=== PATIENT | female | born 1995 | race Caucasian/White ===

== ENCOUNTER 2018-12-21 14:33 | Emergency (ER) | payer OTHER ==
--- NOTE | 2018-12-21 15:00 | RADIOLOGY REPORT (SQ) ---
EXAM DESCRIPTION: ANKLE RIGHT COMPLETE COMPLETED DATE/TIME: 12/21/2018 2:49 pm REASON FOR STUDY: fell down two steps twisted right ankle COMPARISON: None. NUMBER OF VIEWS: Three views. TECHNIQUE: AP, lateral, and oblique radiographic images acquired of the right ankle. LIMITATIONS: None. FINDINGS: MINERALIZATION: Normal. BONES: No acute fracture or dislocation. No worrisome bone lesions. JOINTS: No effusions. SOFT TISSUES: Lateral soft tissue swelling. OTHER: No other significant finding. IMPRESSION: Soft tissue swelling. No acute fracture. TECHNICAL DOCUMENTATION: JOB ID: [id number] [employer]- All Rights Reserved Reading location - IP/workstation name: [email or web address]
[2018-12-21] MEDS ORDERED: ACETAMINOPHEN 325 MG TABLET PO ONE (15:34)
[2018-12-21] MEDS ORDERED: IBUPROFEN 600 MG TABLET PO ONE (15:34)
--- NOTE | 2018-12-21 15:34 | ER Document Report ---
HPI - HPI Time Seen by Provider: 12/21/18 15:22 Context: Patient is a 23-year-old female who presents the emergency department with a chief complaint of right ankle pain. She states that last night she was going down the stairs and had slipped down the last 2 stairs. She notes some swelling and bruising to her right lateral ankle. She has been using her boyfriend's crutches to walk around. Has not taken any ibuprofen or tylenol for her pain. States that it is hard to walk on. Denies any past medical history. Patient does not take any medications. Denies hitting her head, shortness of breath, chest pain, back pain, abdominal pain, or any other symptoms. - CONSTITUTIONAL Constitutional: DENIES: Fever - EENT EENT: DENIES: Sore Throat - NEURO Neurology: DENIES: Headache - CARDIOVASCULAR Cardiovascular: DENIES: Chest pain - RESPIRATORY Respiratory: DENIES: Trouble Breathing - REPRODUCTIVE Reproductive: DENIES: : - MUSCULOSKELETAL Musculoskeletal: REPORTS: Extremity pain - right lateral ankle, Swelling - right lateral ankle. DENIES: Back Pain, Neck Pain - DERM Skin Color: Normal Skin Problems: None Past Medical History - Social History Smoking Status: Never Smoker Family History: Reviewed & Not Pertinent Renal/ Medical History: Reports: Hx Kidney Stones Past Surgical History: Reports: Hx Orthopedic Surgery - Right knee anterior cruciate ligament repair Vertical Provider Document - CONSTITUTIONAL Agree With Documented VS: Yes Exam Limitations: No Limitations General Appearance: No Apparent Distress - INFECTION CONTROL TRAVEL OUTSIDE OF THE [place].S. IN LAST 30 DAYS: No - HEENT HEENT: Atraumatic, Normocephalic, PERRLA - NECK Neck: Normal Inspection - RESPIRATORY Respiratory: No Respiratory Distress - CARDIOVASCULAR Cardiovascular: Regular Rate, Regular Rhythm Pulses: Normal: Posterior tibial, Dorsalis pedis - MUSCULOSKELETAL/EXTREMETIES Musculoskeletal/Extremeties: Tender, Edema. negative: FROM - unable to fully move right ankle due to pain, Eccymosis - right lateral ankle - NEURO Level of Consciousness: Awake, Alert, Appropriate Motor/Sensory: No Motor Deficit, No Sensory Deficit, No Pronator Drift - DERM Integumentary: Warm, Dry Course - Re-evaluation Re-evalutation: 12/21/18 No evidence of a septic joint, gout flare, dislocation, or fracture on exam and imaging. Vitals wnl. No vascular compromise. At this time, I do not see an indication for labs or further imaging. Will continue ibuprofen and tylenol for pain relief. Patient is using crutches from home. Will not provide crutches, but will provide an ankle stirrup and kennedy wrap. Will discharge with conservative measures, return precautions, and follow-up recommendations. - Vital Signs Vital signs: Temp Pulse Resp BP Pulse Ox 98.5 F 106 H 16 149/90 H 100 12/21/18 14:53 12/21/18 14:53 12/21/18 14:53 12/21/18 14:53 12/21/18 14:53 Procedures - Immobilization Right Ankle Pre-Proc Neuro Vasc Exam: Normal Immobilizer type: Kennedy wrap, Ankle stirrup Performed by: Provider Post-Proc Neuro Vasc Exam: Normal, Unchanged from pre-exam Alignment checked and good: Yes Discharge - Discharge Clinical Impression: Ankle sprain Qualifiers: Encounter type: initial encounter Involved ligament of ankle: unspecified ligament Laterality: right Qualified Code(s): S93.401A - Sprain of unspecified ligament of right ankle, initial encounter Condition: Stable Disposition: HOME, SELF-CARE Instructions: Kennedy Wrap ([facility]), Use of Crutches ([facility]), Ice & Elevation ([facility]), Ice Packs ([facility]), Soft Ankle Splint ([facility]), Sprained Ankle ([facility]) Additional Instructions: Your x-ray does not show any acute fracture today. You likely have a ligamentous sprain. You should continue to take ibuprofen 600 mg and Tylenol 1000 mg every 6 hours. Continue to apply ice to the area is much your able. Please follow-up with your primary care physician if you do not have improving your symptoms in the next 1-2 weeks. Please return immediately if you develop weakness, numbness, spreading redness from the area, or any other symptoms that are concerning to you.
[2018-12-21 15:41] VITALS: BP 148/98
== END 2018-12-21 16:05 | disposition home or self-care (01) ==
LOC: ER 14:33
DX: S93.401A Sprain of unspecified ligament of right ankle, initial encounter (principal); M25.571 Pain in right ankle and joints of right foot; W10.9XXA Fall (on) (from) unspecified stairs and steps, initial encounter
CPT/HCPCS: 99283; 73610; L4350

== ENCOUNTER → 2020-02-18 | Outpatient (CLI) | payer OTHER ==
[2020-02-18 11:24] VITALS: BP 165/103
--- NOTE | 2020-02-18 11:24 | ER RDC ASSESSMENT REPORT ---
Intake - In the Last 14 days Have you traveled outside [place]?: No Have you been in close contact with someone CONFIRMED: No Worked in Healthcare?: No - Symptoms Subjective Fever([place] feverish): Yes Chills: Yes Muscule Aches: No Runny Nose: No Sore Throat: Yes Cough (New or worsening chronic cough): Yes Shortness of breath: No Nausea or Vomiting: Yes Headache: Yes Abdominal Pain: No Diarrhea(3 or more loose stools in last 24 hours): No - Do you have any of the following Chronic lung disease: Asthma or emphysema or COPD: No Cystic Fibrosis: No Diabetes: No High Blood Pressure: Yes High Blood Pressure Comment: not well controlled Cardiovascular Disease: No Chronic Kidney Disease: No Chronic Liver Disease: No Chronic blood disorder like Sickle Cell Disease: No Weak immune system due to disease or medication: No Neurologic condition that limits movement: No Developmental delay - Moderate to Severe: No Recent (within past 2 weeks) or current : No Morbid Obesity (>100 pounds over ideal weight): No - Objective Vital Signs: 5'3", 140 lb Temperature: 98.0 F Pulse Rate: 94 Respiratory Rate: 14 Blood Pressure: 165/103 O2 Sat by Pulse Oximetry: 96 Objective: Given above, testing performed: strep, flu, covid Disposition: Home; Selfcare General - General Chief Complaint: Flu Symptoms Time Seen by Provider: 02/18/20 10:15 Mode of Arrival: Ambulatory - [facility] Notes: 25-year-old female presents to [facility] clinic for COVID-19 testing. Prior medical history of hypertension which she admits is poorly controlled. Patient reports onset of symptoms 02/15/2020. She is reporting mild fever, chills, sore throat, cough, nausea, and headache. Patient reports her symptoms have actually started improving within the past 24 hours. She also did take some ibuprofen with relief. No exacerbating factors. - Related Data Allergies/Adverse Reactions: No Known Allergies Allergy (Verified 12/21/18 14:37) Past Medical History - General Information source: Patient - Social History Smoking Status: Never Smoker Family History: Reviewed & Not Pertinent - Past Medical History Cardiac Medical History: Reports: Hx Hypertension Pulmonary Medical History: Reports: None EENT Medical History: Reports: None Neurological Medical History: Reports: None Endocrine Medical History: Reports: None Renal/ Medical History: Reports: Hx Kidney Stones. Denies: Hx Peritoneal Dialysis Malignancy Medical History: Reports: None GI Medical History: Reports: None Musculoskeletal Medical History: Reports None Skin Medical History: Reports None Psychiatric Medical History: Reports: None Traumatic Medical History: Reports: None Infectious Medical History: Reports: None Past Surgical History: Reports: Hx Orthopedic Surgery - Right knee anterior cruciate ligament repair Physical Exam - General General appearance: Appears well In distress: None Notes: PHYSICAL EXAMINATION: GENERAL: Well-appearing and in no acute distress. HEAD: Atraumatic, normocephalic. EYES: sclera anicteric, conjunctiva are normal. ENT: nares patent. Moist mucous membranes. NECK: Normal range of motion, supple without lymphadenopathy LUNGS: CTAB and equal. No wheezes rales or rhonchi. HEART: Regular rate and rhythm without murmurs ABDOMEN: Soft, nontender, normal bowel sounds, no guarding. EXTREMITIES: Normal range of motion, no pitting edema. No cyanosis. NEUROLOGICAL: Cranial nerves grossly intact. Normal speech. PSYCH: Normal mood, normal affect. SKIN: Warm, Dry, normal turgor, no rashes or lesions noted Patient Education/Counseling Counseling/Education: Patient presents with upper respiratory symptoms worrisome for possible Covid 19. Patient does not have emergency worrying symptoms such as difficulty breathing, shortness of breath, chest pain, pressure, confusion or cyanosis and states her symptoms have actually started to improve over the past 24 hours. Her BP is markedly elevated which may be contributing to her headache. She states she ran out of her HTN meds and has not sought refills. Advised urgency of following up with PCP KATHY for mgmt of the blood pressure which patient states she will do. Patient appears suitable for discharge as patient is nontoxic in appearance. Good return precautions have been discussed with patient, patient verbalized understanding and is agreeable with discharge plan of care at this time. Guidance for worsening S/SX: As a person under investigation for Covid 19, the [place] department of Health and Human Services, division of public health advises you to adhere to the following guidance until your test results are reported to you. If your test result is positive, you will receive additional information from your provider and your local health department at that time. Remain at home until you are cleared by the health provider or public health authorities. Keep a log of visitors to your home, notify any visitors to your home of your i solation status. If you plan to move to a new address or leave the county, notify the local health department in your County. Call your doctor or seek care if you have an urgent medical need. Before seeking medical care, call ahead to get instructions from the provider before arriving at the medical office clinic or hospital. Notify them that you are being tested for the virus that causes Covid 19 so that arrangements can be made, as necessary, to prevent transmission to others in the healthcare setting. Next, notify the local health department in your county. If a medical emergency arises and you need to call 911, inform the first responders that you are being tested for the virus that causes Covid 19. Next, notify the local health department in your county. RDC Discharge - Discharge Condition: Stable Disposition: Home; Selfcare
[2020-02-18 12:11] LABS: A TYPE INFLUENZA AG NEGATIVE (NEGATIVE); B INFLUENZA AG NEGATIVE (NEGATIVE)
== END ==
LOC: RDC 09:37
PROVIDERS: ATTEND Registered Nurse
DX: Z20.828 Contact with and (suspected) exposure to other viral communicable diseases (principal)
CPT/HCPCS: 36415; 87070; 87880; 87635; 87804; C9803

== ENCOUNTER 2020-03-18 14:27 | Emergency (ER) | payer OTHER ==
--- NOTE | 2020-03-18 14:48 | ER Document Report ---
ED Medical Screen (RME) - General Chief Complaint: Blood Pressure Problem Stated Complaint: BLOOD PRESSURE Time Seen by Provider: 03/18/20 14:45 Primary Care Provider: EARLE TELLES NP [Primary Care Provider] - Follow up as needed Mode of Arrival: Ambulatory Information source: Patient Notes: 25-year-old female presented to ED for elevated pulse elevated blood pressure shaky cough congestion sore throat nausea and vomiting she does not have a fever. She went over to the [facility] to get tested for COVID and they sent her to the emergency room for elevated pulse and blood pressure. I have spoken with the charge nurse concerning her pulse of 130 apically 138 on the machine with elevated blood pressure trouble over trouble. She states she would see to it that her wound was cleaned and get her back right away. I have greeted and performed a rapid initial assessment of this patient. A comprehensive ED assessment and evaluation of the patient, analysis of test results and completion of medical decision making process will be conducted by an additional ED providers. TRAVEL OUTSIDE OF THE [place].S[place] IN LAST 30 DAYS: No - Related Data Allergies/Adverse Reactions: No Known Allergies Allergy (Verified 12/21/18 14:37) Past Medical History - Past Medical History Cardiac Medical History: Reports: Hx Hypertension Renal/ Medical History: Reports: Hx Kidney Stones. Denies: Hx Peritoneal Dialysis Past Surgical History: Reports: Hx Orthopedic Surgery - Right knee anterior cruciate ligament repair Physical Exam - Vital signs Vitals: Temp Pulse Resp BP Pulse Ox 98.4 F 143 H 20 155/108 H 99 03/18/20 14:35 03/18/20 14:35 03/18/20 14:35 03/18/20 14:35 03/18/20 14:35 Course - Vital Signs Vital signs: Temp Pulse Resp BP Pulse Ox 98.4 F 143 H 20 155/108 H 99 03/18/20 14:35 03/18/20 14:35 03/18/20 14:35 03/18/20 14:35 03/18/20 14:35 Doctor's Discharge - Discharge Referrals: EARLE TELLES NP [Primary Care Provider] - Follow up as needed
--- NOTE | 2020-03-18 15:43 | ER Document Report ---
ED General - General Chief Complaint: High Blood Pressure Stated Complaint: BLOOD PRESSURE Time Seen by Provider: 03/18/20 14:45 Primary Care Provider: EARLE TELLES NP [Primary Care Provider] - Follow up as needed Mode of Arrival: Ambulatory TRAVEL OUTSIDE OF THE [place] IN LAST 30 DAYS: No - HPI Notes: Patient is a 25-year-old female who presents to the emergency department for evaluation of chills, cough, sore throat, vomiting, feeling poorly. She states her symptoms started Sunday. She started taking symptomatic over the counter medications yesterday. Today she states she is started in the chief medical director hours with multiple episodes of vomiting, nonbloody, nonbilious. She has body aches and a mild headache. She is shaking chills. She has a cough. She has some mild shortness of breath. Patient notes she has a history of high blood pr essure. She actually has an appointment to follow-up with cardiology regarding this on Sunday. - Related Data Allergies/Adverse Reactions: No Known Allergies Allergy (Verified 12/21/18 14:37) Home Medications: NuvaRing Past Medical History - General Information source: Patient - Social History Smoking Status: Never Smoker Family History: Reviewed & Not Pertinent, Hypertension - Past Medical History Cardiac Medical History: Reports: Hx Hypertension Renal/ Medical History: Reports: Hx Kidney Stones. Denies: Hx Peritoneal Dial ysis Past Surgical History: Reports: Hx Orthopedic Surgery - Right knee anterior cruciate ligament repair Review of Systems - Review of Systems Constitutional: See HPI EENT: See HPI Respiratory: See HPI Gastrointestinal: See HPI Musculoskeletal: See HPI -: Yes All other systems reviewed and negative Physical Exam - Vital signs Vitals: Temp Pulse Resp BP Pulse Ox 98.4 F 143 H 20 155/108 H 99 03/18/20 14:35 03/18/20 14:35 03/18/20 14:35 03/18/20 14:35 03/18/20 14:35 - Notes Notes: Vital signs reviewed, please refer to chart. Head is normocephalic, atraumatic. Pupils equal round, reactive to light. Oral mucosa is moist. Pharynx is erythematous without exudate noted. Neck is supple without meningismus. Heart is tachycardic with normal S1, S2. Lungs are clear to auscultation bilaterally. Abdomen is soft, nontender, normoactive bowel sounds throughout. Extremities without cyanosis, clubbing. Posterior calves are nontender. Peripheral pulses are equal. Skin is warm and dry. Patient is awake, alert, neurological exam is nonfocal. Course - Re-evaluation Re-evalutation: 03/18/20 15:42 Patient presents to the emergency department for evaluation. She was tachycardi c and hypertensive on arrival. She admits to feeling some anxiety about testing. She is originally seen through triage. Septic work-up and evaluation ensued. I am also concerned about the possibility of pulmonary embolus in this young patient with tachycardia and right axis deviation on her EKG. This still could be secondary to her age, but I do not have any old studies available for comparison. She is consented for PE study. Laboratory investigations are pending. She is given IV fluids. We will continue to monitor. 03/18/20 18:32 Patient's work-up here is essentially unremarkable. She has negative influenza, negative strep. Her laboratory investigations revealed a very mild leukocytosis and some ketones in the urine, but no other significant abnormalities. I will ahead and perform COVID testing. The patient is told she needs to self isolate, as do all other members of her household. Supportive care at home. She is to return to the ED with worsening or new concerning symptoms of any sort. - Vital Signs Vital signs: Temp Pulse Resp BP Pulse Ox 98.4 F 143 H 20 153/91 H 100 03/18/20 14:35 03/18/20 14:35 03/18/20 18:04 03/18/20 18:04 03/18/20 18:04 - Laboratory Result Diagrams: 03/18/20 15:52 03/18/20 15:52 Laboratory results interpreted by me: 03/18/20 03/18/20 03/18/20 15:52 15:52 16:26 WBC 11.5 H Lymph % (Auto) 11.9 L Absolute Neuts (auto) 9.3 H Seg Neutrophils % 81.0 H BUN 6 L Calcium 10.3 H Total Protein 8.7 H Urine Ketones 20 H Urine Blood SMALL H Urine Urobilinogen 4.0 H Ur Leukocyte Esterase TRACE H - Diagnostic Test Radiology reviewed: Reports reviewed Radiology results interpreted by me: 03/18/20 18:33 Chest X-Ray 03/18/20 14:49 IMPRESSION: NO ACUTE RADIOGRAPHIC FINDING IN THE CHEST. Chest/Abdomen CTA 03/18/20 15:38 IMPRESSION: NORMAL CTA OF THE CHEST. NO PULMONARY EMBOLI. - EKG Interpretation by Me Additional EKG results interpreted by me: 03/18/20 15:42 Sinus tachycardia with rate of 134 bpm. Right axis deviation. No acute ST changes concerning for ischemia or infarction. No old studies available for comparison. Discharge - Discharge Clinical Impression: Person under investigation for COVID-19 Hypertension Qualifiers: Hypertension type: unspecified Qualified Code(s): I10 - Essential (primary) hypertension Condition: Stable Disposition: HOME, SELF-CARE Instructions: High Blood Pressure ([facility]), COVID-19 Guidance for Persons Under Investigation Additional Instructions: Stay hydrated with small, frequent sips of fluids. Isolate at home, as discussed, until you are contacted with your results. You can use ove [id number] medications as needed for your symptoms. Return to the emergency department for worsening or new concerning symptoms of any sort. Otherwise call your primary care provider for follow-up. Referrals: EARLE TELLES NP [Primary Care Provider] - Follow up as needed
--- NOTE | 2020-03-18 15:55 | RADIOLOGY REPORT (SQ) ---
EXAM DESCRIPTION: CHEST SINGLE VIEW IMAGES COMPLETED DATE/TIME: 03/18/2020 3:45 pm REASON FOR STUDY: cough congestion tachycardic COMPARISON: None. EXAM PARAMETERS: NUMBER OF VIEWS: One view. TECHNIQUE: Single frontal radiographic view of the chest acquired. RADIATION DOSE: NA LIMITATIONS: None. FINDINGS: LUNGS AND PLEURA: No opacities, masses or pneumothorax. No pleural effusion. MEDIASTINUM AND HILAR STRUCTURES: No masses. Contour normal. HEART AND VASCULAR STRUCTURES: Heart normal in size. Normal vasculature. BONES: No acute findings. HARDWARE: None in the chest. OTHER: No other significant finding. IMPRESSION: NO ACUTE RADIOGRAPHIC FINDING IN THE CHEST. TECHNICAL DOCUMENTATION: JOB ID: [id number] 2010 [employer]- All Rights Reserved Reading location - IP/workstation name: [email or web address]
[2020-03-18] MEDS: NORMAL SALINE 1000 ML 1,000 ML IV PRN ×2 (16:10→17:46)
[2020-03-18 16:19] LABS: ABSOLUTE LYMPHOCYTES (AUTO) 1.4 10^3/uL (0.5-4.7); ABSOLUTE MONOCYTES (AUTO) 0.7 10^3/uL (0.1-1.4); ABSOLUTE NEUT (AUTO) 9.3 10^3/uL (1.7-8.2); BASOPHILS % (AUTO) 0.4 % (0-2); EOSINOPHILS % (AUTO) 0.2 % (0-6); HEMATOCRIT 42.4 % (36.0-47.0); HEMOGLOBIN 14.6 g/dL (12.0-15.5); LYMPHOCYTES % (AUTO) 11.9 % (13-45); MEAN CORPUSCULAR HEMOGLOBIN 30.5 pg (27.0-33.4); MEAN CORPUSCULAR HGB CONC 34.5 g/dL (32.0-36.0); MEAN CORPUSCULAR VOLUME 88 fl (80-97); MONOCYTES % (AUTO) 6.5 % (3-13); PLATELET COUNT 286 10^3/uL (150-450); RED CELL DISTRIBUTION WIDTH 13.3 % (11.5-14.0); TOTAL CELLS COUNTED % (AUTO) 100 %; WHITE BLOOD COUNT 11.5 10^3/uL (4.0-10.5)
[2020-03-18 16:36] LABS: ALKALINE PHOSPHATASE 92 U/L (38-126); ANION GAP 11 (5-19); ASPARTATE AMINO TRANSFERASE 23 U/L (14-36); BILIRUBIN,TOTAL 0.5 mg/dL (0.2-1.3); BLOOD UREA NITROGEN 6 mg/dL (7-20); CALCIUM 10.3 mg/dL (8.4-10.2); CARBON DIOXIDE 25 mmol/L (22-30); CHLORIDE 102 mmol/L (98-107); CREATINE KINASE 39 U/L (30-135); GLUCOSE 101 mg/dL (75-110); POTASSIUM 4.3 mmol/L (3.6-5.0); TOTAL PROTEIN 8.7 g/dL (6.3-8.2)
[2020-03-18 16:37] LABS: VENOUS BLOOD BASE EXCESS 1.6 mmol/L; VENOUS BLOOD HCO3 27.6 mmol/L (20-32); VENOUS BLOOD PCO2 48.5 mmHg (35-63); VENOUS BLOOD PH 7.37 (7.30-7.42)
--- NOTE | 2020-03-18 16:37 | RADIOLOGY REPORT (SQ) ---
EXAM DESCRIPTION: CTA CHEST IMAGES COMPLETED DATE/TIME: 03/18/2020 4:26 pm REASON FOR STUDY: cough, dyspnea, tachy, eval for PE COMPARISON: None. TECHNIQUE: CT scan of the chest performed using helical scanning technique with dynamic intravenous contrast injection. Images reviewed with lung, soft tissue and bone windows. Reconstructed coronal and sagittal MPR images reviewed. Additional 3 dimensional post-processing performed to develop Maximal Intensity Projection images (TX P). All images stored on PACS. All CT scanners at this facility use dose modulation, iterative reconstruction, and/or weight based d osing when appropriate to reduce radiation dose to as low as reasonably achievable (ALARA). [facility]: Dose Right [facility]: CareDose [facility]: Dose Right [facility]: Teradose 4D [facility]: [employer] CONTRAST TYPE AND DOSE: contrast/concentration: Isovue 350.00 mmol/ml; Total Contrast Delivered: 53. 0 ml; Total Saline Delivered: 63.0 ml Contrast bolus adequate for pulmonary arteries and aorta. RENAL FUNCTION: None required. The patient is less than 50 years old. RADIATION DOSE: CT Rad equipment meets quality standard of care and radiation dose reduction techniq ues were employed. CTDIvol: 6.6 - 14.3 mGy. DLP: 532 mGy-cm. . LIMITATIONS: None. FINDINGS: LUNGS AND PLEURA: No masses, infiltrates, or pneumothorax. No pleural effusions or pleura l calcifications. AORTA AND GREAT VESSELS: No aneurysm. No dissection. HEART: No pericardial effusion. No significant coronary artery calcifications. PULMONARY ARTERIES: No emboli visualized in the main pulmonary arteries or the segmental branches. HILAR AND MEDIASTINAL STRUCTURES: No identified masses or abnormal nodes. HARDWARE: None in the chest. UPPER ABDOMEN: No significant findings. Limited exam. THYROID AND OTHER SOFT TISSUES: No masses. No adenopathy. BONES: No acute or significant finding. 3D MIPS: Confirm above findings. OTHER: No other significant finding. IMPRESSION: NORMAL CTA OF THE CHEST. NO PULMONARY EMBOLI. COMMENT: Quality ID # [id number]: Final reports with documentation of one or more dose reduction techniques (e.g., Automated exposure control, adjustment of the mA and/or kV according to patient size, use of iterative reconstruction technique) TECHNICAL DOCUMENTATION: JOB ID: [id number] 2010 [employer]- All Rights Reserved Reading location - IP/workstation name: [email or web address]
[2020-03-18 16:41] LABS: A TYPE INFLUENZA AG NEGATIVE (NEGATIVE); B INFLUENZA AG NEGATIVE (NEGATIVE)
[2020-03-18 17:18] LABS: APPEARANCE,URINE SLIGHTLY-CLOUDY; BILIRUBIN,URINE NEGATIVE (NEGATIVE); GLUCOSE, URINE NEGATIVE (NEGATIVE); KETONES,URINE 20 mg/dL (NEGATIVE); LEUKOCYTE ESTERASE,URINE TRACE (NEGATIVE); NITRITE,URINE NEGATIVE (NEGATIVE); PROTEIN,URINE NEGATIVE (NEGATIVE); URINE SPECIFIC GRAVITY 1.029
[2020-03-18 17:19] LABS: COLOR,URINE YELLOW
[2020-03-18 17:26] LABS: URINE AMPHETAMINES SCREEN NEGATIVE; URINE BARBITURATES SCREEN NEGATIVE; URINE BENZODIAZEPINES SCREEN NEGATIVE; URINE COCAINE SCREEN NEGATIVE; URINE MARIJUANA (THC) SCREEN NEGATIVE; URINE METHADONE SCREEN NEGATIVE; URINE PHENCYCLIDINE SCREEN NEGATIVE
--- NOTE | 2020-03-18 18:25 | EKG REPORT ---
SEVERITY:- ABNORMAL ECG - SINUS TACHYCARDIA MELISSA, CONSIDER BIATRIAL ABNORMALITIES BORDERLINE RIGHT AXIS DEVIATION : Confirmed by: Richard Herrera MD 18-Mar-2020 18:24:01
[2020-03-18 19:11] VITALS: BP 166/104
== END 2020-03-18 19:11 | disposition home or self-care (01) ==
LOC: ER 14:27
DX: I10 Essential (primary) hypertension (principal); R05 Cough; J02.9 Acute pharyngitis, unspecified; R11.10 Vomiting, unspecified; R51 Headache; R68.83 Chills (without fever); R06.02 Shortness of breath; R00.0 Tachycardia, unspecified; Z97.5 Presence of (intrauterine) contraceptive device; Z20.828 Contact with and (suspected) exposure to other viral communicable diseases
CPT/HCPCS: 93005; 99284; 96360; 96361; 36415; 87040; 87070; 87880; 82550; 83605; 84703; 85025; 87077; 80053; 81001; 80307; 82803; 87804; 71045; 71275; 93010; J7030

== ENCOUNTER → 2020-03-18 | Outpatient (CLI) | payer OTHER ==
[2020-03-18 14:24] VITALS: BP 174/104
--- NOTE | 2020-03-18 14:24 | ER RDC ASSESSMENT REPORT ---
Intake - In the Last 14 days Have you traveled outside [place]?: No Have you been in close contact with someone CONFIRMED: No Worked in Healthcare?: No - Symptoms Subjective Fever([place] feverish): Yes Chills: Yes Muscule Aches: Yes Runny Nose: Yes Sore Throat: Yes Cough (New or worsening chronic cough): Yes Shortness of breath: No Nausea or Vomiting: Yes Headache: Yes Abdominal Pain: No Diarrhea(3 or more loose stools in last 24 hours): No - Do you have any of the following Chronic lung disease: Asthma or emphysema or COPD: No Cystic Fibrosis: No Diabetes: No High Blood Pressure: Yes Cardiovascular Disease: No Chronic Kidney Disease: No Chronic Liver Disease: No Chronic blood disorder like Sickle Cell Disease: No Weak immune system due to disease or medication: No Neurologic condition that limits movement: No Developmental delay - Moderate to Severe: No Recent (within past 2 weeks) or current : No Morbid Obesity (>100 pounds over ideal weight): No - Objective Temperature: 99.4 F Pulse Rate: 134 - original pulse 146 Respiratory Rate: 16 Blood Pressure: 174/104 - original BP 186/112 O2 Sat by Pulse Oximetry: 95 Disposition: To ED - Patient sent to ER based upon symptoms and VS General - General Chief Complaint: Flu Symptoms Time Seen by Provider: 03/18/20 14:15 Mode of Arrival: Ambulatory Information source: Patient - HPI Notes: 25-year-old female presented to [facility] clinic for COVID-19 testing patient was previously tested approximately 1 month ago for strep, flu, and COVID-19. All results at that time were negative. However patient states symptoms have significantly worsened over the past 2-1/2 weeks. She has currently complaining of severe headache, chills, tremors, myalgia, rhinorrhea, sore throat, cough, and nausea. Patient states she has not been able to stop shaking for the past 2-1/2 days. She is denying any shortness of breath, abdominal pain or diarrhea at this time. Patient reports no known exposure to COVID-19 positive individual. Advised based upon presentation and vital signs, recommend referral over to ER for further evaluation. - Related Data Allergies/Adverse Reactions: No Known Allergies Allergy (Verified 12/21/18 14:37) Past Medical History - General Information source: Patient - Social History Smoking Status: Never Smoker Family History: Reviewed & Not Pertinent - Past Medical History Cardiac Medical History: Reports: Hx Hypertension Pulmonary Medical History: Reports: None EENT Medical History: Reports: None Neurological Medical History: Reports: None Endocrine Medical History: Reports: None Renal/ Medical History: Reports: Hx Kidney Stones. Denies: Hx Peritoneal Dialysis Malignancy Medical History: Reports: None GI Medical History: Reports: None Musculoskeletal Medical History: Reports None Skin Medical History: Reports None Psychiatric Medical History: Reports: None Traumatic Medical History: Reports: None Infectious Medical History: Reports: None Past Surgical History: Reports: Hx Orthopedic Surgery - Right knee anterior cruciate ligament repair Physical Exam - Vital signs Interpretation: Hypertensive, Tachycardic - General General appearance: Alert, Anxious In distress: Mild Notes: PHYSICAL EXAMINATION: GENERAL: Ill-appearing, mild distress. HEAD: Atraumatic, normocephalic. EYES: sclera anicteric, conjunctiva are normal. ENT: nares patent. Moist mucous membranes. NECK: Normal range of motion, supple without lymphadenopathy LUNGS: CTAB and equal. No wheezes rales or rhonchi. HEART: Tachycardic, without murmurs ABDOMEN: Soft, nontender, normal bowel sounds, no guarding. EXTREMITIES: Normal range of motion, no pitting edema. No cyanosis. NEUROLOGICAL: Cranial nerves grossly intact. Normal speech. PSYCH: Anxious, tearful. SKIN: Warm, Dry, normal turgor, no rashes or lesions noted Patient Education/Counseling Counseling/Education: Based upon patient's symptomology and vital signs, patient referred to ER for further evaluation and testing. Patient is in agreement with plan and is heading to ER at this time. ER charge nurse notified patient on their way. RDC Discharge - Discharge Clinical Impression: Encounter for screening laboratory testing for COVID-19 virus URI (upper respiratory infection) Qualifiers: URI type: unspecified URI Qualified Code(s): J06.9 - Acute upper respiratory infection, unspecified Hypertension Qualifiers: Hypertension type: unspecified Qualified Code(s): I10 - Essential (primary) hypertension Condition: Fair Disposition: To ED
== END ==
LOC: RDC 13:49
PROVIDERS: ATTEND Registered Nurse
DX: Z20.828 Contact with and (suspected) exposure to other viral communicable diseases (principal); J06.9 Acute upper respiratory infection, unspecified; R50.9 Fever, unspecified; R05 Cough; J02.9 Acute pharyngitis, unspecified; J34.89 Other specified disorders of nose and nasal sinuses; R25.1 Tremor, unspecified; M79.10 Myalgia, unspecified site; R51 Headache; I10 Essential (primary) hypertension
CPT/HCPCS: 87635; C9803; 99201; 99211